=== PATIENT | male | born 1980 | race Caucasian/White ===

== ENCOUNTER 2017-12-30 15:41 | Inpatient (IN) | payer BC, OTHER ==
[~2017-12-30] VITALS: Ht 172.7 cm; Wt 77.1 kg
[2017-12-30] MEDS ORDERED: ONDANSETRON 4 MG/2 ML VIAL IM PRN ×2 (17:15→19:00)
[2017-12-30] MEDS ORDERED: METHOCARBAMOL 750 MG TABLET PO PRN (17:15)
[2017-12-30] MEDS ORDERED: IBUPROFEN 600 MG TABLET PO PRN (17:15)
[2017-12-30] MEDS ORDERED: LOPERAMIDE HCL 2 MG CAPSULE PO PRN ×3 (17:15→19:00)
[2017-12-30] MEDS ORDERED: KETOROLAC TROMETHAMINE 30 MG INJ IM PRN ×2 (17:15→19:00)
[2017-12-30] MEDS ORDERED: DIAZEPAM 10 MG TABLET PO PRN ×2 (17:15)
[2017-12-30] MEDS ORDERED: CLONIDINE HCL 0.1 MG TABLET PO PRN (17:15)
[2017-12-30] MEDS ORDERED: ONDANSETRON ODT 4 MG TAB.RAPDIS SL PRN ×2 (17:15→19:00)
[2017-12-30] MEDS ORDERED: LORAZEPAM 2 MG/1 ML VIAL IM PRN ×2 (17:15→19:00)
[2017-12-30] MEDS ORDERED: ACETAMINOPHEN 325 MG TABLET PO PRN (17:15)
[2017-12-30] MEDS ORDERED: MAG HYDROX/AL HYDROX/SIMETH 30 ML LIQUID UDC PO PRN ×2 (17:15→19:00)
[2017-12-30] MEDS ORDERED: MIRALAX 17 GM POWD.PACK PO PRN ×2 (17:15→19:00)
[2017-12-30] MEDS ORDERED: DICYCLOMINE HCL 20 MG TABLET PO PRN ×2 (17:15→19:00)
[2017-12-30] MEDS ORDERED: DIAZEPAM 5 MG TABLET PO PRN ×2 (17:15→19:00)
[2017-12-30] MEDS ORDERED: PHENOBARBITAL 60 MG TABLET PO SCH ×3 (21:00→23:50)
[2017-12-30] MEDS ORDERED: PATIENT MAY USE OWN MED- MD OK PO SCH ×2 (21:00→21:15)
--- NOTE | 2017-12-30 23:55 | NUR ---
INTAKE NOTE: Patient's first assessment done in intake office. Patient is a 37 year old male, Patient reports NKA. Patient noted with moderate intoxication. Patient is sad, with poor eye contact. Patient c/o anxiety, agitation, nervousness, abdominal cramps, restlessness, tremors, sweating, and insomnia. Patient denies SI/HI. VS: T: 97.9, BP: 110/69, HR 85, RR 18, RA O2SAT: 96%. Pain: "0/10". Explained rules and regulations of the unit. Patient returned his knowledge back by verbalized understanding. Will further assess patient on the unit.
[2017-12-31 00:09] VITALS: BP 110/69
--- NOTE | 2017-12-31 00:09 | NUR ---
ADMISSION NOTE: New patient is a 37 year old male admitted to [facility] on 12/31/2017 @0009 for Benzodiazepines/Xanax ,Alcohol/Beer, and Kratom withdrawal. Patient is ambulatory. Height: 68 inches; Weigh by standing scale: 170 lbs. Patient is alert and oriented x4. Patient noted with moderate intoxication. CIWA 11. Patient is sad, with poor eye contact. Patient c/o anxiety, agitation, nervousness, abdominal cramps, restlessness, tremors, sweating, and insomnia. Patient denies SI/HI. VS: T: 97.9, BP: 110/69, HR 85, RR 18, RA O2SAT: 96%. Pain: "0/10". Patient reports NKA, is on Regular Diet, Full Code, is on Fall and Seizures Precautions. Patient denies Seizures History . PMH: Anxiety, Depression, Hx of Asthma. Patient reports "has been recently supported by for going this first detox ". Respirations even and unlabored. Lung Sounds are clear throughout. Patient denies SOB, cough, and chest pain. Bowel sounds active in all four quadrants. Skin is intact, warm and dry to touch. Patient brought his home medications. PCP: "MD Karie". Patient denies SI/HI now. Substance Use History: 1. " Xanax 6 mg PO every day. Last used 6 mg PO on 12/30/2017". 2."Krotom PO unknown dosage every day. Last used Krotom PO unknown dosage today afternoon". 3."Alcohol/Beer PO 24 oz/720 ml occasionally. Last used 24 oz/720 ml of Alcohol/Beer PO on 12/28/2017". UDS test provided. Patient Blood Labs drawnDoctor Nathanael Maldonado MD aware. Orders placed. Encouraged patient to verbalize feelings. All needs met. Call light within reach. Bed locked and in lowest position. Padded side rails up x2. Will continue to monitor.
[2017-12-31 01:31] LABS: *AMPHETAMINE, URINE NEGATIVE (NEGATIVE); *BARBITURATE, URINE NEGATIVE (NEGATIVE); *CANNABINOID, URINE POSITIVE (NEGATIVE); *COCCAINE, URINE NEGATIVE (NEGATIVE); *OPIATE, URINE NEGATIVE (NEGATIVE); *PHENCYCLIDINE SCREEN,URINE NEGATIVE (NEGATIVE)
[2017-12-31 01:32] LABS: BASOPHILS % (AUTO) 0.3 % (0.0-2.0); EOSINOPHILS # (AUTO) 0.2 K/uL (0.0-0.7); EOSINOPHILS % (AUTO) 2.9 % (0.0-7.0); HEMATOCRIT 40.5 % (36.7-47.1); HEMOGLOBIN 13.5 g/dL (12.5-16.3); LYMPHOCYTES # (AUTO) 1.9 K/uL (20.0-40.0); LYMPHOCYTES % (AUTO) 26.5 % (20.5-51.5); MEAN CORPUSCULAR HEMOGLOBIN 30.5 uug (23.8-33.4); MEAN CORPUSCULAR HGB CONC 33 g/dL (32.5-36.3); MEAN CORPUSCULAR VOLUME 91.1 fL (73.0-96.2); MONOCYTES # (AUTO) 0.6 K/uL (2.0-10.0); MONOCYTES % (AUTO) 9.1 % (0.0-11.0); NEUTROPHILS # (AUTO) 4.4 K/uL (1.8-8.9); NEUTROPHILS % (AUTO) 61.2 % (38.5-71.5); PLATELET COUNT (AUTO) 183 K/uL (152-348); RED BLOOD CELL COUNT(AUTO) 4.44 MIL/uL (4.06-5.63); WHITE BLOOD COUNT (AUTO) 7.1 K/uL (3.6-10.2)
[2017-12-31 01:50] LABS: ETHANOL < 3 MG/DL (0-0)
[2017-12-31 01:53] LABS: ALANINE AMINOTRANSFERASE 36 U/L (16-63); ALKALINE PHOSPHATASE 68 U/L (50-136); ASPARTATE AMINOTRANSFERASE 22 U/L (15-37); BILIRUBIN,TOTAL 0.2 mg/dL (0.2-1.0); CARBON DIOXIDE 27 mmol/L (21-32); CHLORIDE 104 mmol/L (98-107); CREATININE 1.1 mg/dL (0.6-1.3); GLUCOSE 114 mg/dL (74-106); MAGNESIUM 1.9 mg/dL (1.8-2.4); POTASSIUM 3.7 mmol/L (3.5-5.1); TOTAL PROTEIN, SERUM 7.2 g/dL (6.4-8.2); UREA NITROGEN, BLOOD 16 mg/dL (7-18)
--- NOTE | 2017-12-31 01:59 | NUR ---
PHENOBARBITAL ONE TIME ORDER NON-ADMITTED Phenobarbital one time order non-admitted because patient is sleeping. All needs met. Call light within reach. Bed locked and in lowest position. Padded side rails up x2. Will continue to monitor.
[2017-12-31] MEDS: DIAZEPAM 10 MG TABLET PO PRN ×4 (03:28→23:52)
--- NOTE | 2017-12-31 03:28 | NUR ---
PRN VALIUM (DIAZEPAM 10 MG TABLET) 10 MG 1 TABLET PO ADMINISTRATION PRN Valium (Diazepam 10 mg tablet) 10 mg 1 tablet PO administrated for CIWA 11 as ordered with full glass of water. Patient tolerated well. All needs met. Safety measures on place. Call light within reach, bed in lowest position and locked, padded rails upX2. Will continue to monitor closely.
[2017-12-31 04:00] VITALS: BP 115/77
--- NOTE | 2017-12-31 04:28 | NUR ---
RE-ASSESSMENT Patient is sleeping. Respirations even and unlabored. RR PRN Valium 10 mg 1 tablet PO administrated for CIWA 11 @0328 was effective. All needs met. Safety measures on place. Call light within reach, bed in lowest position and locked, padded rails up bilaterally rails up bilaterally. Will continue to monitor closely.
[2017-12-31] MEDS: HYDROXYZINE PAMOATE 25 MG CAPSULE PO PRN ×2 (05:12→21:59)
--- NOTE | 2017-12-31 05:12 | NUR ---
PRN VISTARIL 25 MG 1 CAP PO ADMINISTRATION PRN Vistaril 25 mg 1 cap PO administrated for anxiety with full glass of water as ordered. Patient tolerated well. All needs met. Safety measures on place. Call light within reach, bed in lowest position and locked, padded rails upX2. Will continue to monitor closely
--- NOTE | 2017-12-31 06:12 | NUR ---
RE-ASSESSMENT Patient is sleeping. Respirations even and unlabored. RR 16. PRN Vistaril 25 mg 1 cap PO administrated for anxiety @0512 was effective. All needs met. Safety measures on place: Call light within reach, bed in lowest position and locked, padded rails up x2. Will continue to monitor closely.
--- NOTE | 2017-12-31 07:06 | NUR ---
END OF SHIFT NOTE 37 year old male admitted for Benzodiazepines/Xanax, Alcohol/Beer, and Krotom withdrawal. 5 day Phenobarbital taper and 3 day Valium taper ordered to patient. Patient is alert and oriented x4. Patient is sad, with poor eye contact. Patient encouraged to expresses his feelings. Patient c/o easily overwhelmed. Emotional support provided. The patient noted unshaven with uncombed hair. Education in safety and hygiene care provided to patient. Encouraged to independently perform hygiene care. Patient denied SI/HI. CIWA=11 @0009. Last CIWA=9 @0400. Patient presented with anxiety, agitation, depression, irritability, fatigue, nervousness, sweating, and insomnia. PRN Valium 10 mg 1 tablet PO administrated for CIWA 11 @0328, and PRN Vistaril 25 mg 1 cap PO administrated for anxiety @0512 were effective. Safe and calm environment with minimized noises was provided. Patient slept 5 hours, intake 592 ml, voided x1. All needs met. Safety measures in the place by hospital policy: Call light within reach, bed in the lowest position and locked, padded rails up x2. Patient endorsed to day shift nurse.
--- NOTE | 2017-12-31 07:07 | NUR ---
Start of Shift Forensic Science Technician received report on 37 year old male admitted to [facility] on 12/31/17 for Benzodiazepine and ETOH and Codeine detoxification. Pt reports NKDA, full code and regular diet. PMH of anxiety, depression and asthma. With no history of seizures. Pt currently on a Phenobarbital and Valium taper, tolerating well with last CIWA of 9. PRN Valium and Vistaril administered on NOC, effective, as pt currently sleeping. Forensic Science Technician encounters pt in pts room resting with eyes closed. Even rise and fall of chest, with even and non-labored respirations. Bed in low position with wheels locked and side rails up x2. Will continue to monitor, support and encourage according to plan of care.
[2017-12-31 08:24] VITALS: BP 117/73
[2017-12-31] MEDS ORDERED: HYDROXYZINE PAMOATE 25 MG CAPSULE PO PRN (09:00)
[2017-12-31] MEDS ORDERED: PHENOBARBITAL 60 MG TABLET PO SCH (09:00)
[2017-12-31] MEDS ORDERED: TUBERCULIN,PURIF.PROT.DERIV. 5 TU/0.1 ML TEST ID ONE ×2 (09:00)
[2017-12-31] MEDS: PHENOBARBITAL 60 MG TABLET PO SCH ×4 (09:56→20:09)
[2017-12-31 12:40] VITALS: BP 123/83
--- NOTE | 2017-12-31 12:50 | NUR ---
PRN Clonidine Pt complain of anxiety and chills. Describes symptoms as wanting to "passout". Pt struggles to describe symptoms, stalling and thinking. Pt endorsed no symptoms 5 minutes prior to pt's complaint. Pt is administered medication per MD order, including scheduled Phenobarbital. Will continue to monitor, support and encourage according to plan of care.
[2017-12-31] MEDS: CLONIDINE HCL 0.1 MG TABLET PO PRN ×2 (12:51→21:59)
--- NOTE | 2017-12-31 13:50 | NUR ---
PRN Re-assessment Pt continues to endorse high levels of anxiety and is visibly anxious. Clinical Appeals Rn assess pt's condition and administered medication per PRN protocol. Pt tolerated well with no complaints.
--- NOTE | 2017-12-31 14:08 | NUR ---
PRN Valium Pt still having high levels of anxiety after administration of Clonidine PRN and scheduled medication. Corporate Real Estate Manager assess pt and administered medication per PRN standards. Pt tolerated administration with no complaints. Will continue to monitor, support and encourage according to plan of care.
--- NOTE | 2017-12-31 15:50 | NUR ---
Ativan Re-Assessment Pt complains of continuing anxiety. Community Recreation Programmer assesses an effective response to PRN administration. Pt is calm and cooperative and is visibly better emotionally and physically then before administration of medication. Pt is resting on bed when encountered by health underwriter. Will continue to monitor, support and encourage according to plan of care.
[2017-12-31] MEDS: GABAPENTIN 300 MG CAPSULE PO SCH ×2 (16:30→20:09)
[2017-12-31] MEDS: METHOCARBAMOL 750 MG TABLET PO PRN (16:30)
--- NOTE | 2017-12-31 16:30 | NUR ---
KAYLEN Terry Pt states, " I'm having muscle aches and pains." Pt unwilling to attempt non-pharmacological interventions. International Freight Forwarder administered medication per orders and pt tolerated well.
[2017-12-31 16:59] VITALS: BP 115/68
[2017-12-31] MEDS ORDERED: GABAPENTIN 300 MG CAPSULE PO SCH (17:00)
--- NOTE | 2017-12-31 17:30 | NUR ---
Harrison Re-Assessment Pt endorses some relief, but believes his herbal remedies to be more effective. Pt anxious and emotional, dramatic and manipulative. Will continue to monitor, support and encourage according t oplan of care.
--- NOTE | 2017-12-31 18:17 | NUR ---
CIWA PRN Refusal Pt became increasingly anxious and emotional and began to describe an imminent panic attack. Pt's VS stable, as recorded at 1700. Pt is hyper-active with restless legs. Pt describes himself as having withdrawal symptoms. Pt is exhibited high signs of anxiety, with no other complaints of symptoms. As caption writer educated pt, pt began to describe more symptoms and caption writer re-assessed pt using the CIWA scale, scored 14. Hat Blocking Operator waited the appropriate 4 hours since the administration of the last PRN. Pt offered the PRN Valium to pt and pt refused medication. Pt is currently calm and resting. Pt has ceased his hyper-activity and restlessness. Pt considerably calmer. Pt states he would like to wait until it is needed more. Pt had just finished speaking with a friend and had received satisfying news. Pt was educated on the indication for the medication. Will continue to monitor, support and encourage according to plan of care.
--- NOTE | 2017-12-31 19:15 | NUR ---
End of shift Mold Checker provided report on 37 year old male admitted to [facility] on 12/31/17 for Benzodiazepine and ETOH and Codeine detoxification. Pt reports NKDA, full code and regular diet. PMH of anxiety, depression and asthma. With no history of seizures. Pt currently on a Phenobarbital and Valium taper, tolerating well with last CIWA of 6 recorded at 1600. PRN Valium at 1408 and Clonidine at 1250, both for anxiety. Pt is A/O x4 and is assertive with his needs. Pt is irritable and concrete in thought process, matter of fact. Pt has short attention span and perseverates on topics. Flat affect with congruent mood. Pt terminated his wifes consent for information this morning, after writerspoke with , while having consent. Pt later gave permission t ospeak with pts . Pt denies his needs to be here and states, I didnt know I was coming, my made me. Pt lacking in insight into his illness and the effects on his relationships. Mold Checker great amounts of time educating pt on the importance of allowing the staff to help him thru this. Educated on importance of continued follow-up. Bed in low position with wheels locked and side rails up x2. Will continue to monitor, support and encourage according to plan of care.
--- NOTE | 2017-12-31 19:16 | NUR ---
Start of shift note Received report from day shift nurse. Pt is a 37 yo male, A+Ox4, presenting to [facility] for Benzo/ETOH withdrawal. Pt noted with high levels of anxiety, agitation, c/o headache, and generalized pain. Pt is pacing hallways while awaiting nursing intervention. Pt has HX of Anxiety, depression, and asthma which will be monitored throughout shift. Respirations even and unlabored. Will continue to monitor.
[2017-12-31] MEDS: IBUPROFEN 600 MG TABLET PO PRN (19:38)
--- NOTE | 2017-12-31 19:38 | NUR ---
PRN Valium 20mg and PRN Motrin Pt c/o headache 5/10 and noted with CIWA: 16. PRN Valium 20mg and PRN Motrin given and tolerated well. Will reassess within 1 HR. Will continue to monitor.
[2017-12-31 20:22] VITALS: BP 134/91
--- NOTE | 2017-12-31 20:23 | NUR ---
PRN Valium 20mg and PRN Motrin Reassessment Medications effective. Pt expresses a reduction in headache to 2/10 and noted with CIWA: 11. No s/s of ASE/distress noted at this time. Respirations even and unlabored. Will continue to monitor.
[2017-12-31] MEDS: diphenhydrAMINE 50 MG CAPSULE PO PRN (21:59)
--- NOTE | 2017-12-31 21:59 | NUR ---
PRN Vistaril, Clonidine, and Benadryl Pt c/o Anxiety, Agitation, and inability to sleep. PRN Vistaril, Clonidine, and Benadryl given and tolerated well. Will reassess within 1 HR. Will continue to monitor.
--- NOTE | 2017-12-31 22:50 | NUR ---
PRN Vistaril, Clonidine, and Benadryl Reassessment Medications effective. Pt expresses reduction in Anxiety and Agitation. No s/s of ASE/distress noted at this time. Respirations even and unlabored. Will continue to monitor.
--- NOTE | 2017-12-31 23:52 | NUR ---
PRN Valium 20 mg Pt noted with CIWA: 17. PRN Valium 20mg given and tolerated well. Will reassess within 1 HR. Will continue to monitor.
[2018-01-01 00:28] VITALS: BP 134/91
--- NOTE | 2018-01-01 00:40 | NUR ---
PRN Valium 20mg Reassessment Medication effective. Pt noted with CIWA: 12. No s/s of ASE/distress noted at this time. Respirations even and unlabored. Will continue to monitor.
[2018-01-01 04:28] VITALS: BP 110/72
[2018-01-01] MEDS: HYDROXYZINE PAMOATE 25 MG CAPSULE PO PRN ×3 (04:30→20:03)
[2018-01-01] MEDS: CLONIDINE HCL 0.1 MG TABLET PO PRN (04:31)
--- NOTE | 2018-01-01 04:31 | NUR ---
PRN Clonidine and Vistaril Pt c/o anxiety and agitation and requested for PRN Clonidine and Vistaril. Medications given and tolerated well. Will reassess within 1 HR. Will continue to monitor.
[2018-01-01] MEDS: DIAZEPAM 10 MG TABLET PO PRN (05:10)
--- NOTE | 2018-01-01 05:15 | NUR ---
PRN Valium and Clonidine, Vistaril Reassessment: Pt called for nurse and requested for anxiety medication. Pt stated Clonidine and Vistaril were ineffective. CIWA measured at 12. Pt observed with restlessness, racing thoughts, and irritability. Valium PRN given as ordered. Will continue to monitor.
--- NOTE | 2018-01-01 06:10 | NUR ---
PRN Valium 10mg Reassessment Medication ineffective. CIWA: 12. No s/s of ASE noted. Will continue to monitor.
--- NOTE | 2018-01-01 07:00 | NUR ---
End of shift note Pt noted with high levels of anxiety and agitation throughout shift. Pt was given PRN medications as follows: Valium 20mg and Motrin @1933, Benadryl, Clonidine, and Vistaril @2159, Clonidine and Vistaril @0436, and Valium 10mg @0515. Pt slept for a total of 6 HRS. Last CIWA: 12 @0610. Respirations even and unlabored. Will endorse to day shift nurse.
--- NOTE | 2018-01-01 07:35 | NUR ---
START OF SHIFT NOTE Received report from night nurse, pt was received PRN'S medications, last CIWA 12, slept fro 6 hours. Received pt anxious, agitated, body aches, muscle spams, nausea, educated pt with relaxation technique, pt verbalized understanding. All safety measures in place. Will cont to monitor.
[2018-01-01] MEDS: METHOCARBAMOL 750 MG TABLET PO PRN (07:39)
[2018-01-01] MEDS: IBUPROFEN 600 MG TABLET PO PRN ×2 (07:39→20:03)
--- NOTE | 2018-01-01 07:39 | NUR ---
PRN MOTRIN/ROBAXIN Patient reported body aches and muscle spasms 05/23. PRN Motrin/Robaxin 750mg PO given as ordered. Will cont to monitor and reassess.
[2018-01-01 08:00] VITALS: BP 112/62
[2018-01-01] MEDS: PHENOBARBITAL 60 MG TABLET PO SCH ×3 (08:13→22:17)
[2018-01-01] MEDS: GABAPENTIN 300 MG CAPSULE PO SCH ×4 (08:13→22:17)
--- NOTE | 2018-01-01 08:39 | NUR ---
MOTRIN/ROBAXIN REASSESSMENT Patient reported medications was effective body aches and muscle spasms lower to 3/10.
[2018-01-01] MEDS ORDERED: PHENOBARBITAL 60 MG TABLET PO SCH (09:00)
[2018-01-01 09:07] LABS: HEPATITIS B SURFACE AG Negative (Negative)
[2018-01-01] MEDS: LOPERAMIDE HCL 2 MG CAPSULE PO PRN (09:39)
--- NOTE | 2018-01-01 09:39 | NUR ---
PRN IMODIUM Patient reported diarrhea x2. PRN Imodium 2mg PO as ordered. Will cont to monitor and reassess the pt.
[2018-01-01] MEDS ORDERED: INSULIN NPH 1,000 UNITS/10 ML VIAL SQ ONE (10:15)
--- NOTE | 2018-01-01 10:39 | NUR ---
IMODIUM REASSESSMENT Per pt Imodium was effective no diarrhea at this time.
--- NOTE | 2018-01-01 10:57 | NUR ---
PRN VISTARIL Patient reported anxiety, agitation. PRN Vistaril 25mg PO given as ordered. Will cont to monitor and reassess.
--- NOTE | 2018-01-01 11:57 | NUR ---
VISTARIL REASSESSMENT Patient reported medication was effective anxiety and agitation subsided.
[2018-01-01 12:00] VITALS: BP 119/65
[2018-01-01] MEDS: ACETAMINOPHEN 325 MG TABLET PO PRN (12:43)
--- NOTE | 2018-01-01 12:43 | NUR ---
PRN TYLENOL Patient c/o headache 03/23. PRN Tylenol 650mg PO given as ordered. Will cont to monitor and reassess.
--- NOTE | 2018-01-01 13:43 | NUR ---
TYLENOL REASSESSMENT Per pt medication was effective in reducing his headache 2/10.
[2018-01-01 16:00] VITALS: BP 132/78
[2018-01-01] MEDS ORDERED: PHENOBARBITAL 60 MG TABLET PO ONE (16:30)
--- NOTE | 2018-01-01 16:40 | NUR ---
PHENOBARBITAL X1 DOSE Patient was seen by Dr. Tucker with new order to give Phenobarbital 60mg PO x1, medication given as ordered.
[2018-01-01] MEDS: CETIRIZINE HCL 10 MG TABLET PO SCH (17:00)
--- NOTE | 2018-01-01 19:09 | NUR ---
END OF SHIFT NOTE Patient presented with anxiety, agitation, tremors, nausea, sad, flat effect. Patient was given PRN Motrin, Robaxin, Imodium, Vistaril, Tylenol,Phenobarbital x1 noted to be effective. Patient was seen by MD with new order of Zyrtec and PRN nasal spray. Patient rested most of the time in his room. Encourage patient to attend groups and activities to learn new coping skills. Patient verbalized understanding. Vital signs WNL. All safety measures in place. Patient endorsed to night nurse in stable condition.
--- NOTE | 2018-01-01 19:11 | NUR ---
Start of shift note Received report from day shift nurse. Pt is a 37 yo male, A+Ox4, presenting to [facility] for Benzo/ETOH withdrawal. Pt noted with anxiety, agitation, c/o headache, and generalized pain. Pt has HX of anxiety, depression, and asthma which will be monitored throughout shift. Respirations even and unlabored. Will continue to monitor.
--- NOTE | 2018-01-01 20:03 | NUR ---
PRN Motrin and Vistaril Pt c/o headache and anxiety and requested for PRN Motrin and Vistaril. Medications given and tolerated well. Will reassess within 1 HR. Will continue to monitor.
[2018-01-01 20:58] VITALS: BP 125/80
--- NOTE | 2018-01-01 21:00 | NUR ---
PRN Motrin and Vistaril Reassessment Medications effective. Pt expresses reduction in headache and anxiety. No s/s of ASE noted at this time. Respirations even and unlabored. Will continue to monitor.
[2018-01-01] MEDS ORDERED: diphenhydrAMINE 25 MG CAP PO ONE (22:15)
[2018-01-01] MEDS: diphenhydrAMINE 50 MG CAPSULE PO PRN (22:17)
--- NOTE | 2018-01-01 22:17 | NUR ---
PRN Benadryl Pt c/o inability to sleep and requested for PRN Benadryl. Medication given and tolerated well. Will reassess within 1 HR. Will continue to monitor.
--- NOTE | 2018-01-01 23:15 | NUR ---
PRN Benadryl Reassessment Medication effective. Pt is resting well in bed. No s/s of ASE noted at this time. Respirations even and unlabored. Will continue to monitor.
[2018-01-02 00:18] VITALS: BP 128/73
[2018-01-02 04:12] VITALS: BP 133/84
[2018-01-02] MEDS: CLONIDINE HCL 0.1 MG TABLET PO PRN ×2 (04:31→16:40)
[2018-01-02] MEDS: HYDROXYZINE PAMOATE 25 MG CAPSULE PO PRN ×3 (04:31→22:10)
[2018-01-02] MEDS: IBUPROFEN 600 MG TABLET PO PRN (04:34)
--- NOTE | 2018-01-02 04:35 | NUR ---
PRN Vistaril, Clonidine, and Motrin Pt c/o anxiety, agitation, and headache and requested for PRN Vistaril, Clonidine, and Motrin. Medications given and tolerated well. Will reassess within 1 HR. Will continue to monitor.
[2018-01-02] MEDS: LOPERAMIDE HCL 2 MG CAPSULE PO PRN ×2 (04:50→09:19)
--- NOTE | 2018-01-02 04:50 | NUR ---
PRN Imodium and PRN Bentyl: Pt reported an episode of diarrhea. Pt requested Imodium. PRN Imodium given as ordered. Pt also c/o stomach cramps. Bentyl PRN given as ordered. Will continue to monitor.
--- NOTE | 2018-01-02 05:29 | NUR ---
PRN Vistaril, Clonidine, and Motrin Reassessment Medications effective. Pt expresses reduction in anxiety, agitation, and headache. No s/s of ASE noted at this time. Respirations even and unlabored. Will continue to monitor.
--- NOTE | 2018-01-02 05:30 | NUR ---
PRN Maalox Pt c/o heartburn and requested for PRN Maalox. Medication given and tolerated well. Will reassess within 1 HR. Will continue to monitor.
--- NOTE | 2018-01-02 06:30 | NUR ---
PRN Maalox Reassessment Medication effective. Pt expresses reduction in heartburn. No s/s of ASE noted at this time. Respirations even and unlabored. Will continue to monitor.
--- NOTE | 2018-01-02 07:00 | NUR ---
End of shift note Pt was continuously noted with high levels of anxiety and agitation while awake throughout shift. Pt was given PRN medications as follows: Vistaril and Motrin @2003, Benadryl @2217, Vistaril, Clonidine, and Motrin @0435, Imodium and Bentyl @0450, and Maalox @0530. Pt slept for a total of 7 HRS. Last CIWA: 9 @0400. Respirations even and unlabored. Will endorse to day shift nurse.
--- NOTE | 2018-01-02 08:00 | NUR ---
START OF SHIFT NOTE Patient received anxious, agitated,c/o of x1 loose stool, flat effect,unshaven, poor eye contact,. Per endorsement pt was given Vistaril, Motrin, Clonidine, Benadryl, Imodium, Maalox, Bentyl noted to be effective per night nurse. Educated pt regarding plan of the day and medication regimen with good verbal understanding. All safety measures in place. Will cont to monitor.
[2018-01-02 08:18] VITALS: BP 109/78
[2018-01-02] MEDS ORDERED: PHENOBARBITAL 60 MG TABLET PO SCH ×3 (09:00→21:00)
[2018-01-02] MEDS: PHENOBARBITAL 60 MG TABLET PO SCH ×2 (09:16→12:42)
[2018-01-02] MEDS: GABAPENTIN 300 MG CAPSULE PO SCH (09:16)
--- NOTE | 2018-01-02 09:19 | NUR ---
PRN IMODIUM Patient reported loose stool x1. PRN Imodium 2mg PO as ordered. Will cont to monitor and reassess the pt.
--- NOTE | 2018-01-02 10:19 | NUR ---
IMODIUM REASSESSMENT Per pt Imodium was effective no diarrhea at this time.
[2018-01-02] MEDS: ACETAMINOPHEN 325 MG TABLET PO PRN (10:26)
[2018-01-02] MEDS: METHOCARBAMOL 750 MG TABLET PO PRN (10:26)
--- NOTE | 2018-01-02 10:26 | NUR ---
PRN TYLENOL/ROBAXIN Patient reported headache and muscle spasms 05/23. PRN Tylenol 650mg PO/Robaxin 750mg PO given as ordered. Will cont to monitor and reassess.
--- NOTE | 2018-01-02 11:13 | NUR ---
Therapist prompted client to go to groups today.
--- NOTE | 2018-01-02 11:26 | NUR ---
TYLENOL/ROBAXIN REASSESSMENT Patient reported medications was effective headache and muscle spasms decreased to 3/10.
[2018-01-02 12:00] VITALS: BP 125/79
[2018-01-02] MEDS: GABAPENTIN 400 MG CAPSULE PO SCH ×3 (12:41→22:10)
[2018-01-02 16:00] VITALS: BP 124/83
--- NOTE | 2018-01-02 16:40 | NUR ---
PRN CLONIDINE/VISTARIL Patient was c/o of anxiety, agitation, hot cold flashes, diaphoresis. PRN Clonidine 0.1mg PO, Vistaril 50mg PO given as ordered. Will cont to monitor and reassess.
--- NOTE | 2018-01-02 17:04 | NUR ---
ENDORSE CARE Patient endorsed to day shift nurse, all pertinent information discussed.
--- NOTE | 2018-01-02 17:05 | NUR ---
Assumed Care: Assumed care for the patient at this time. Patient is a 37 year old male admitted for BZO/ETOH withdrawal. All pertinent information discussed. PRN Tylenol, Robaxin, Imodium, Clonidine and Vistaril were given. Clonidine and Vistaril to be reassessed. Last CIWA 5. Will continue to monitor for the remainder of the shift.
[2018-01-02] MEDS ORDERED: ALBUTEROL SULFATE 1.25 MG/3 ML NEBU NEB PRN (18:15)
--- NOTE | 2018-01-02 18:45 | NUR ---
END OF SHIFT NOTE Patient presented with anxiety, agitation, tremors, body aches, muscle spasms. Patient was given PRN Robaxin, Imodium, Vistaril, Tylenol, Clonidine noted to be effective. Gabapentin order changed from 600 to 800 mg QID. Medications administetred as ordered. Patient attended groups and actitivies. Vital signs WNL. All safety measures in place. Patient endorsed to night nurse in stable condition.
--- NOTE | 2018-01-02 19:10 | NUR ---
Start of Shift Patient Received. Patient is in activities room participating in a group meeting. Patient continues on a 5 day Phenobarbital taper. Per endorsement, patient was given PRN Tylenol, Robaxin, Imodium, Clonidine, and Vistaril with medications noted to be effective. Last noted CIWA 5. All needs attended to promptly. Will continue plan of care as ordered.
[2018-01-02 20:46] VITALS: BP 110/72
[2018-01-02] MEDS: CETIRIZINE HCL 10 MG TABLET PO SCH (21:09)
[2018-01-02] MEDS: diphenhydrAMINE 50 MG CAPSULE PO PRN (22:10)
[2018-01-02] MEDS: BACLOFEN 10 MG TABLET PO SCH (22:10)
[2018-01-02] MEDS: CLONIDINE HCL 0.1 MG TABLET PO SCH (22:10)
--- NOTE | 2018-01-02 22:10 | NUR ---
PRN Medication Administration Patient was noted manipulating medication time. Explained to patient that medications were due between designated times and patient states "I dont understand what the problem is. I want to take them later." Patient is noted to be very hyperactive, restless, increased anxiety, agitation, and verbalizing inability of falling asleep. PRN Vistaril and Benadryl administered with routine medications. All needs attended to promptly. Will continue to monitor.
--- NOTE | 2018-01-02 23:10 | NUR ---
PRN Medication Reassessment Patient is noted continuously going out for cigarettes, pacing halls with other clients, socializing in man. Encouraged patient to attempt to go to bed due to receiving sleep aid. Patient noted to be passive but verbalized understanding. Patient continued to socialize in man. Will continue to monitor.
[2018-01-03 00:12] VITALS: BP 144/86
[2018-01-03] MEDS: OXYMETAZOLINE NASAL 0.05% 15 ML SPRAY NS PRN ×2 (00:23→21:58)
--- NOTE | 2018-01-03 04:12 | NUR ---
Vitals Refused Patient is in bed sleeping. Breathing even and non labored. Vitals refused. Respirations noted to be 16. Will continue to monitor. Addendum: 01/03/18 at 0524 by CARLOS DENSON LVN Amended: Links added.
[2018-01-03] MEDS: HYDROXYZINE PAMOATE 25 MG CAPSULE PO PRN (06:25)
--- NOTE | 2018-01-03 06:27 | NUR ---
PRN Medication Administration patient is noted awake and verbalizing "I've been awake this entire time. I think I'm due for medications. They should be every 6 hours." Encouraged patient to not focus on medications. Asked patient to describe signs and symptoms of withdrawal if possible. patient is noted to be very fidgety and anxious. patient then verbalized "if I take the Vistaril now then I cant take the Vistaril with my other medications." PRN Vistaril administered. Will continue to monitor.
--- NOTE | 2018-01-03 07:20 | NUR ---
PRN Medication Reassessment patient is noted in bed sleeping. breathing even and non labored. no restlessness or discomfort noted. PRN Vistaril noted to be effective. Will continue to monitor.
--- NOTE | 2018-01-03 07:21 | NUR ---
End of Shift Patient is in bed sleeping. Breathing even and non labored. Patient is noted to be focused on medication and manipulating medication times. He is also noted to be hyperactive, anxious, blunt, and irritable. Patient received PRN Vistaril x2 and Benadryl. Patient noted to sleep 4 hours. Last noted CIWA 10. All needs attended to promptly. Will continue plan of care as ordered.
--- NOTE | 2018-01-03 08:00 | NUR ---
START OF SHIFT NOTE Received report from night nurse patient cont on 5 days Phenobarbital taper tolerating well. Patient received PRN medications effective, last CIWA-10, slept for 4 hours. Received patient alert awake c/o of sore throat, noted anxious agitated,encourage PO fluids as tolerated. Educated pt regarding plan of the day and medication regimen with good verbal understanding. Safety measures in place. Will cont to monitor.
[2018-01-03 08:20] VITALS: BP 131/78
[2018-01-03] MEDS: GABAPENTIN 400 MG CAPSULE PO SCH ×4 (08:26→21:56)
[2018-01-03] MEDS: BACLOFEN 10 MG TABLET PO SCH ×3 (08:26→21:57)
[2018-01-03] MEDS: CLONIDINE HCL 0.1 MG TABLET PO SCH ×2 (08:27→14:24)
[2018-01-03] MEDS ORDERED: PHENOBARBITAL 60 MG TABLET PO SCH ×4 (09:00→21:00)
[2018-01-03 12:00] VITALS: BP 132/74
[2018-01-03] MEDS ORDERED: BENZOCAINE/MENTH/CETYLPYRD LOZENGE MM PRN (12:30)
--- NOTE | 2018-01-03 14:24 | NUR ---
PRN MOTRIN Patient was c/o of body aches PRN Motrin 600mg PO was administered as ordered. Will cont to monitor and reassess. Addendum: 01/03/18 at 1547 by GENEVA STOKES LVN body aches -03/23
[2018-01-03] MEDS: IBUPROFEN 600 MG TABLET PO PRN (14:26)
--- NOTE | 2018-01-03 15:24 | NUR ---
MOTRIN REASSESSMENT Per pt body aches lower to 1/10 medication effective.
[2018-01-03 16:00] VITALS: BP 114/68
--- NOTE | 2018-01-03 19:09 | NUR ---
END OF SHIFT NOTE Patient presented with anxiety, agitation, unshaven, Labile. Patient was given scheduled medications. Patient received PRN Motrin noted to be effective. Patient attended groups and activities. Vital signs WNL. Patient consumed 100% of his meals, encourage PO fluids as tolerated. Safety measures in place. Patient endorsed to night nurse in stable condition.
[2018-01-03 20:00] VITALS: BP 137/74
--- NOTE | 2018-01-03 20:00 | NUR ---
Start of Shift Notes Received 37 y/o male manan, admitted for medically supervised withdrawal from Benzo. Px is placed on 5 day Phenobarbital taper, last dose will be on 01/05/2018 AM. Px is tolerating it. Px appears worried, and restless. Unfolded clothes noted on top of the cabinet. Px is demanding. Px stated that his anxiety is 6/10 and has H/A of 5/10. Px wanted Seroquel at 11PM with Benadryl because he said that he didn't sleep at all last night. Px also requested for nasal spray at 11PM. Last reported CIWA was 9. Bed on lowest position, side rail up 2x, and call light within reach. We'll continue to monitor.
[2018-01-03] MEDS: diphenhydrAMINE 50 MG CAPSULE PO PRN (21:56)
[2018-01-03] MEDS: CETIRIZINE HCL 10 MG TABLET PO SCH (21:57)
[2018-01-03] MEDS: CLONIDINE HCL 0.2 MG TABLET PO SCH (21:57)
[2018-01-03] MEDS: ACETAMINOPHEN 325 MG TABLET PO PRN (21:58)
--- NOTE | 2018-01-03 22:16 | NUR ---
RN note PRN Seroquel Pt c/o inability to sleep/insomnia and is getting agitated and pacing on the hallway. Dr. Romero informed and he ordered Seroquel 100 mg PO HS PRN. Carried out.
--- NOTE | 2018-01-03 23:00 | NUR ---
Reassessment of H/A Px stated that his H/A is very mild after an hour of administration of Tylenol 650 mg PO. We'll continue to monitor.
[2018-01-03] MEDS ORDERED: QUETIAPINE FUMARATE 100 MG TABLET PO ONE (23:45)
--- NOTE | 2018-01-03 23:48 | NUR ---
PRN meds At 2155, Benadryl 50 mg/cap, 1 cap given PO as PRN per px's request for insomnia. At 2157, Tylenol 325 mg/tab, 2 tabs given PO as PRN for H/A of 5/10. At 2347, Seroquel 100 mg/tab, 1 tab given PO as 1x dose. We'll continue to monitor.
[2018-01-04] VITALS: BP 116/67
[2018-01-04 04:00] VITALS: BP 105/61
--- NOTE | 2018-01-04 04:00 | NUR ---
CIWA deferred CIWA deferred due to the px is asleep, to assess if the px is awake per doctor's order. We'll continue to monitor.
--- NOTE | 2018-01-04 07:17 | NUR ---
End of Shift Notes During the shift, at 2156, Benadryl 50 mg PO and Seroquel 100 mg PO given for insomnia. They were effective, px slept for 6 hours. At 2158, Tylenol 650 mg given PO for H/A, and it was effective. Pxs oral intake of 1 L, voided 3x, No BM. Slept for 6 hours. At 0630, px is asleep on bed in right side lying position. Px's bed on lowest position, side rail up 2x, and call light within reach. We'll continue to monitor. Px endorsed to AM shift nurse.
--- NOTE | 2018-01-04 07:30 | NUR ---
START OF SHIFT Pt is a 37 yr old male, AA&Ox4. Pt was admitted on 12/30/17 for Benzo/alcohol withdrawal and is on 5 day Phenobarbital taper. Received report from burial agent nurse. Pt received Benadryl PRN and Seroquel PRN for sleep and Tylenol PRN for pain. Medication was effective. Pt slept for 6 hrs. Pt was able to verbalize of sleeping well through the night Addendum: 01/04/18 at 1037 by CURLY LONDON LVN Incomplete documentation Last CIWA score was 8 at 0000. Pt c/o anxiety this morning but is able to cope with anxiety level. Skin is intact, warm and dry to touch. Safety precautions observed. Call light is within reach. Will continue to monitor.
[2018-01-04 08:00] VITALS: BP 105/61
[2018-01-04] MEDS ORDERED: PHENOBARBITAL 60 MG TABLET PO SCH ×2 (09:00)
[2018-01-04] MEDS: GABAPENTIN 400 MG CAPSULE PO SCH ×4 (09:19→21:59)
[2018-01-04] MEDS: BACLOFEN 10 MG TABLET PO SCH ×3 (09:19→21:59)
[2018-01-04] MEDS: CLONIDINE HCL 0.1 MG TABLET PO SCH ×2 (09:20→14:14)
--- NOTE | 2018-01-04 10:00 | NUR ---
NSG NOTES Pt stating feeling foggy and having visual sensitivity to light due to the phenobarbital. Dr. Maldonado is made aware with new verbal orders to discontinue Phenobarbital taper and continue with Valium taper for the remaining of the taper. MD will initiate order. Will continue to f/u.
[2018-01-04 12:00] VITALS: BP 107/64
[2018-01-04] MEDS: DIAZEPAM 5 MG TABLET PO SCH ×2 (12:40→21:59)
[2018-01-04] MEDS: HYDROXYZINE PAMOATE 25 MG CAPSULE PO PRN (12:40)
--- NOTE | 2018-01-04 12:40 | NUR ---
PRN GIVEN Pt c/o increase anxiety. Pt is observed fidgety and tense. Vistaril 50mg PO PRN was given as ordered, medication jasvir well. Will continue to monitor.
[2018-01-04] MEDS: IBUPROFEN 600 MG TABLET PO PRN (14:14)
--- NOTE | 2018-01-04 14:15 | NUR ---
PRN GIVEN/VISTARIL RE-ASSESSMENT Pt c/o headache 02/21. Facial grimacing is observed. Motrin 600mg PO PRN was given as ordered. Encouraged increase fluid intake. Vistaril 50mg PO PRN was effective. Pt continue to c/o anxiety but is able to cope with anxiety level. Pt is observed attending group. Will continue to monitor.
--- NOTE | 2018-01-04 15:15 | NUR ---
PRN RE-ASSESSMENT Motrin 600mg PO PRN was effective. Pt denies any headache at this time. Encouraged pt to drink plenty of fluids for hydration. Will continue to monitor.
[2018-01-04 16:00] VITALS: BP 117/62
--- NOTE | 2018-01-04 19:16 | NUR ---
END OF SHIFT Pt is a 37 yr old male, AA&OX4. Pt was admitted on 12/30/17 Benzo/ETOH withdrawal. Pt was on 5 day Phenobarbital but was changed to Valium taper due to pt was c/o side effects to Pheno. Pt c/o increase anxiety and was observed fidgety in bed. Pt is noted with flat affect. Pt received Vistaril 50mg PO PRN for anxiety, medication was effective. Pt also received Motrin 600mg PO PRN for headache. Medication was effective. Pt was encouraged increase fluid intake for hydrations. Pt was cooperative with medication regimen and attended group therapy during the day. Last CIWA score was 8 at 1600. Pt consumed 100% of meals. Safety precautions observed. Call light is within reach.
--- NOTE | 2018-01-04 19:45 | NUR ---
Start of Shift Notes Received 37 y/o male manan, admitted for medically supervised withdrawal from Benzo/ETOH. Px was placed on 5 day Phenobarbital taper, but changed to Diazepam today 01/04/2018, where the last dose will be tomorrow 01/05/2018. Px appears worried, and restless. Unfolded clothes noted on top of the cabinet. Px verbalized "I am having hallucinations, some kind of clouds in front of me and I am scared". "I am not improving" the px added. Px stated that his anxiety is 8/10 and has H/A of 6/10. Last reported CIWA from AM shift nurse was 8. Bed on lowest position, side rail up 2x, and call light within reach. We'll continue to monitor.
[2018-01-04 20:00] VITALS: BP 122/78
[2018-01-04] MEDS: ACETAMINOPHEN 325 MG TABLET PO PRN (21:59)
[2018-01-04] MEDS: CETIRIZINE HCL 10 MG TABLET PO SCH (21:59)
[2018-01-04] MEDS: CLONIDINE HCL 0.2 MG TABLET PO SCH (21:59)
[2018-01-05] VITALS: BP 126/77
[2018-01-05] MEDS: HYDROXYZINE PAMOATE 25 MG CAPSULE PO PRN ×5 (00:40→22:03)
[2018-01-05] MEDS: QUETIAPINE FUMARATE 100 MG TABLET PO PRN ×2 (00:40→23:50)
[2018-01-05] MEDS: OXYMETAZOLINE NASAL 0.05% 15 ML SPRAY NS PRN (00:41)
--- NOTE | 2018-01-05 00:41 | NUR ---
PRN meds At 2159, Tylenol 325 mg/tab, 2 tabs given PO for H/A of 6/10. At 0040, Vistaril 25 mg/cap, 2 caps given PO and Seroquel 100 mg/tab, 1 tab given PO for insomnia. At 0041, Nasal spray given for clogged nose. We'll continue to monitor.
[2018-01-05 04:00] VITALS: BP 119/74
--- NOTE | 2018-01-05 07:24 | NUR ---
End of Shift Notes During the shift, at 2159, Tylenol 650 mg given PO for H/A of 610 and it was effective. [facility]. At 0040, px asked for nasal spray and pills to help him sleep, nasal spray given, Vistaril 50 mg and Seroquel 100 mg given PO for insomnia and it was effective. Pxs oral intake is 900 ml, voided 2x, No BM. Px slept for 5 hours. At 0630, px is asleep on bed. Last CIWA 9. Bed on lowest position, side rail up 2x, and call light within reach. We'll continue to monitor.
--- NOTE | 2018-01-05 07:30 | NUR ---
START OF SHIFT Pt is a 37 yr old male, AA&Ox4. Pt was admitted on 12/30/17 for Benzo/alcohol withdrawal and is on Valium taper as ordered. Medication jasvir well. Received report from shift stacker nurse. Pt received Tylenol PRN, Vistaril PRN and Seroquel PRN during the night. Medication was mildly effective. Pt states of sleeping 4-5 hrs intermittently and does not feel rested. Pt is observed agitated and c/o muscle aches and feeling "foggy". Pt is observed tense and difficultly staying still. Pt is observed worried his pupils are largely dilated. Pupils are brisk and reactive to light, size 4. Pt was encouraged increase fluid intact. Safety precautions observed. Will continue to monitor.
[2018-01-05 08:00] VITALS: BP 125/79
[2018-01-05] MEDS ORDERED: PHENOBARBITAL 60 MG TABLET PO SCH (09:00)
[2018-01-05] MEDS ORDERED: DIAZEPAM 5 MG TABLET PO SCH (09:00)
[2018-01-05] MEDS: GABAPENTIN 400 MG CAPSULE PO SCH ×4 (09:02→22:03)
[2018-01-05] MEDS: CLONIDINE HCL 0.1 MG TABLET PO SCH ×2 (09:02→22:02)
[2018-01-05] MEDS: BACLOFEN 10 MG TABLET PO SCH (09:02)
--- NOTE | 2018-01-05 09:02 | NUR ---
PRN GIVEN Pt c/o increase anxiety. Vistaril 50mg PO PRN was given as ordered. Pt was encouraged to attended group therapy. Will continue to monitor.
[2018-01-05] MEDS: IBUPROFEN 600 MG TABLET PO PRN (09:41)
--- NOTE | 2018-01-05 10:00 | NUR ---
PRN RE-ASSESSMENT/PRN GIVEN Vistaril PRN was not effective. Pt continues to be observed wtih increase anxiety and agitation. Pt is observed speaking out loud to other patients and c/o he was not able to sleep during the night. Pt c/o headache 04/23. Motrin 600mg PO PRN was given at 0941. Pt was encouraged to drink plenty of fluids for hydration. Will continue to monitor.
[2018-01-05 12:00] VITALS: BP 122/64
[2018-01-05] MEDS ORDERED: BACLOFEN 20 MG TABLET PO SCH (12:00)
[2018-01-05] MEDS: LIDOCAINE 5% PATCH TD SCH (12:32)
--- NOTE | 2018-01-05 13:35 | NUR ---
PRN GIVEN Pt c/o increase anxiety. Vistaril 50mg PO PRN was given. Medication jasvir well. Will continue to monitor.
--- NOTE | 2018-01-05 14:35 | NUR ---
PRN RE-ASSESSMENT Vistaril PRN was effective. Pt continues to c/o of anxiety but is able to cope with anxiety level.
[2018-01-05] MEDS: BACLOFEN 20 MG TABLET PO SCH ×2 (15:31→22:03)
[2018-01-05 16:00] VITALS: BP 125/78
--- NOTE | 2018-01-05 17:36 | NUR ---
PRN Pt anxious, irritable, and restless. Vistaril po prn per MD order given and tolerated well.
--- NOTE | 2018-01-05 19:10 | NUR ---
END OF SHIFT Pt is a 37 yr old male, AA&OX4. Pt was admitted on 12/30/17 Benzo/ETOH withdrawal. Pt completed a Valium taper. Pt is to be discharged tomorrow on 01/06/18. Pt was noted with increase anxiety and agitation throughout the day due to lack of sleep and to being discharged. Pt received Vistaril PRN at 0902, 1335 and at 1735. Medication was mildly effective. Pt continues to be observed with anxiety. Pt was encouraged to attend group. Pt did attend group and activities. Pt is noted with flat affect. Skin is intact, warm and moist to touch. Last CIWA score was 14 at 1600. Pt consumed 100% of meals. Safety precautions observed. Call light is within reach.
--- NOTE | 2018-01-05 19:15 | NUR ---
Start of Shift Note: Endorsement received from day shift nurse. Received patient alert & oriented x4. Patient admitted for medically supervised withdrawal from ETOH & Benzo withdrawal. Pt completed his Ativan taper and is discharging tomorrow. Pt presented with flat affect, anxious/irritable mood & generalized body aches. Skin is warm and moist to touch. Last CIWA is 14. Pt received PRN Vistaril x3 & Motrin during day shift. Pt educated current plan of care for the night and medication regimen. Will continue to monitor patient.
[2018-01-05 20:00] VITALS: BP 135/82
[2018-01-05] MEDS: CETIRIZINE HCL 10 MG TABLET PO SCH (22:03)
--- NOTE | 2018-01-05 22:03 | NUR ---
PRN Vistaril Patient noted to be restless and complained of anxiety. PRN Vistaril administered as ordered. Will monitor for effectiveness of medication.
--- NOTE | 2018-01-05 23:03 | NUR ---
PRN Reassessment Pt verbalized decreased in anxiety after medication administration. Safety measures in place. Will continue to monitor patient.
--- NOTE | 2018-01-05 23:50 | NUR ---
PRN Seroquel Patient still awake at this time. Pt unable to fall asleep. PRN Seroquel administered as ordered. Will continue to monitor patient.
[2018-01-06] VITALS: BP 121/76
[2018-01-06] MEDS ORDERED: CLON0.1T14 PO (00:09)
[2018-01-06] MEDS ORDERED: LIDO30AD10 TD (00:09)
[2018-01-06] MEDS ORDERED: HYDR-3895 PO (00:09)
[2018-01-06] MEDS ORDERED: IBUP-1955 PO (00:09)
[2018-01-06] MEDS ORDERED: DICY20TA28 PO (00:09)
[2018-01-06] MEDS ORDERED: GABA-536 PO (00:09)
[2018-01-06] MEDS ORDERED: BACL20TA PO (00:09)
[2018-01-06] MEDS ORDERED: CETI10TA14 PO (00:09)
--- NOTE | 2018-01-06 01:00 | NUR ---
PRN Reassessment Patient asleep in bed and appears comfortable. Pt is stable. Safety precautions are in place. Will continue to monitor patient.
[2018-01-06] MEDS: HYDROXYZINE PAMOATE 25 MG CAPSULE PO PRN (06:08)
--- NOTE | 2018-01-06 06:08 | NUR ---
PRN Vistaril Patient awake and noted to be restless. Patient complains of anxiety. PRN Vistaril administered as ordered. Will monitor for effectiveness of medication.
--- NOTE | 2018-01-06 07:15 | NUR ---
End of Shift Note: Pt in bed asleep at this time and easily arousable. Pt remained alert & oriented x4. Pt completed Ativan taper and is scheduled to be discharge today and is going to [facility]. Pt presented with generalized body aches, anxiety & agitation during my shift. Pt received PRN Vistaril 2x for anxiety & Seroquel for sleep and were effective. Pt remained compliant with medications and treatment. Closely monitored vitals signs and noted WNL. Pt slept for a total of 5 hours. Fluid intake: 1092 ml. Voided 1x with no bowel movement during my shift. All needs attended. Safety measures in place. Will endorse to day shift nurse. Addendum: 01/06/18 at 0728 by STEPHEN KANG RN ERROR: DISREGARD NOTE
--- NOTE | 2018-01-06 07:28 | NUR ---
End of Shift Note: Pt in bed asleep at this time and easily arousable. Pt remained alert & oriented x4. Pt completed Phenobarbital taper and is scheduled to be discharge today and is going to [facility]. Pt presented with generalized body aches, anxiety & agitation during my shift. Pt received PRN Vistaril 2x for anxiety & Seroquel for sleep and were effective. Pt remained compliant with medications and treatment. Closely monitored vitals signs and noted WNL. Pt slept for a total of 5 hours. Fluid intake: 1092 ml. Voided 1x with no bowel movement during my shift. All needs attended. Safety measures in place. Will endorse to day shift nurse.
--- NOTE | 2018-01-06 07:55 | NUR ---
START OF SHIFT Endorse rcvd from ongoing nurse, client is in room, sitting in his chair, unable to stop shaking his R leg, he presents with anxious mood, flat affect. He reports not feeling rested after sleep and two loose stools within the last hour, stating "I think I am just nervous about leaving today. " He denies any N/V. Client declines antidiarrheal medication at this time. He denies any SI/HI. medically supervised withdrawal from alprazolam. Last CIWA 4 @ 1999. PRN Vistaril 50mg PO x 2 for anxiety, Seroquel 100mg for inability to sleep, he slept 5 hrs. Client is schedule for discharge today at 0930 to [facility]. Call light within reach. Seizure precautions observed.
[2018-01-06] MEDS: GABAPENTIN 400 MG CAPSULE PO SCH (08:09)
[2018-01-06] MEDS: LOPERAMIDE HCL 2 MG CAPSULE PO PRN (08:09)
[2018-01-06] MEDS: BACLOFEN 20 MG TABLET PO SCH (08:10)
--- NOTE | 2018-01-06 08:10 | NUR ---
PRN Imodium 4mg PO for loose stool x 2. Encourage client to increase PO fluid as tolerated to prevent dehydration. He verbalized understanding.
[2018-01-06] MEDS: LIDOCAINE 5% PATCH TD SCH ×2 (08:11→08:13)
[2018-01-06] MEDS: CLONIDINE HCL 0.1 MG TABLET PO SCH (08:11)
[2018-01-06 08:28] VITALS: BP 140/84
--- NOTE | 2018-01-06 09:10 | NUR ---
Reassess PRN Imodium 4mg, client reports no more episodes of loose stool.
--- NOTE | 2018-01-06 10:50 | NUR ---
Discharge note Client is in stable condition. He is being discharge to the lobby with all pertinent health information, home medications, personal belonging, and prescriptions x 3. Last CIWA 4.
== END 2018-01-06 10:50 | DRG 895 ==
LOC: SRC 16:05 → UNDOADMIN 16:05 → SRC 23:03
PROVIDERS: ADMIT Internal Medicine; ATTEND Internal Medicine
PROC: HZ2ZZZZ Detoxification Services for Substance Abuse Treatment (ICD-10-PCS; principal; 2017-12-30)
PROC: HZ41ZZZ Group Counseling for Substance Abuse Treatment, Behavioral (ICD-10-PCS; 2018-01-01)
PROC: HZ31ZZZ Individual Counseling for Substance Abuse Treatment, Behavioral (ICD-10-PCS; 2018-01-03)
DX: F13.232 Sedative, hypnotic or anxiolytic dependence with withdrawal with perceptual disturbance (principal); F19.129 Other psychoactive substance abuse with intoxication, unspecified; I15.9 Secondary hypertension, unspecified; F10.10 Alcohol abuse, uncomplicated; Y90.0 Blood alcohol level of less than 20 mg/100 ml; G47.00 Insomnia, unspecified; F41.0 Panic disorder [episodic paroxysmal anxiety]; F17.211 Nicotine dependence, cigarettes, in remission; F12.10 Cannabis abuse, uncomplicated; F90.9 Attention-deficit hyperactivity disorder, unspecified type; L64.9 Androgenic alopecia, unspecified; F32.9 Major depressive disorder, single episode, unspecified
CPT/HCPCS: 36415; 70030-TC; 80307; 80346; 80349; 83735; 85025; 86592; 86705; 86803; 87340; 87806; A4663; G0480; J8499; Q0163